=== PATIENT | male | born 1935 | race Caucasian/White ===

== ENCOUNTER 2022-04-01 10:40 | Outpatient (CLI) | payer MEDICARE, BC, SELFPAY | END 2022-04-01 10:41 | disposition home or self-care (01) | LOC: LAB 10:42 | PROVIDERS: PCP Surgery; Visit Provider Orthopaedic Surgery | DX: Z01.818 Encounter for other preprocedural examination (principal) | CPT/HCPCS: 36415; 86850; 86900; 86901 ==

== ENCOUNTER 2022-04-02 07:22 | Day surgery (SDC) | payer MEDICARE, BC, SELFPAY ==
[2022-04-02] VITALS (35 sets, daily range): BP systolic 97–180; BP diastolic 47–91; PULSE 50–80; RESP 12–22; TEMP 35.6–36.9; O2SAT 94–100; BMI 24.5
[2022-04-02] MEDS: ACETAMINOPHEN 500 MG TABLET 1000 MG PO ×3 (08:00→23:30)
[2022-04-02] MEDS: LACTATED RINGERS 1000 ML 1,000 ML 100 ML IV ×2 (08:00→09:55)
[2022-04-02] MEDS: SODIUM CHLORIDE 0.9 % (FLUSH) 10 ML SYRINGE IVF (08:00)
[2022-04-02] MEDS: OXYCODONE (CR) 10 MG TAB.ER.12H PO (08:00)
[2022-04-02] MEDS: CELECOXIB 200 MG CAPSULE PO ×2 (08:00→20:36)
[2022-04-02] MEDS: MIDAZOLAM HCL 1 MG/ML inj IVP (08:20)
[2022-04-02] MEDS: fentaNYL 100 MCG/2 ML inj IVP (08:20)
--- NOTE | 2022-04-02 08:29 | W.PM.NB ---
Nerve Block Nerve Block Time Seen by Provider: 08:30 Date Seen: 04/02/22 Type of block requested by surgeon for post-operative analgesia: DIMAS/LFCN Side: right Time out performed: Yes Verification of patient name: Yes Verification of date of : Yes Site marking: site marked Name of person performing procedure: Johnson Continuous monitoring Was continuous monitoring of O2 sat, B/P, air sampling and monitoring, recorded every 15 minutes?: Yes Procedure Checklist: sterile prep, needles and gloves Ultrasound guided. Images saved: Yes Medications given in 5ml increments after negative aspiration: Ropivicaine %: 0.5 mL: 30 Needle gauge: 20 Decadron (mg): 10 Precedex (mcg): 25 Patient tolerated procedure well: Yes Additional comments: Needle noted below psoas tendon needle noted adjacent to LFCN Block Charges Block Charge (with Pro Fee): Other Periph Nerve Block Use of Ultrasound Machine for Block: Yes- US Guidance/pain block
--- NOTE | 2022-04-02 08:31 | SUR.PREOP ---
TIME?OUT:?0819 PT/RN/MDA?VERIFICATION?OF?SURGICAL?SITE,?PROCEDURE,?AND?CONSENT OBTAINED?PRIOR?TO?INVASIVE?PROCEDURE.
--- NOTE | 2022-04-02 08:48 | CRLHL7_ITS ---
For Patients: As a result of the Cures Act, medical imaging exams and procedure reports are released immediately into your electronic medical record. You may view this report before your referring provider. If you have questions, please contact your health care provider. Indication: Hip replacement surgery Technique: AP hip fluoroscopic images. Fluoroscopy time 50.4 second seconds. Findings/Impression: Hardware from a right total hip arthroplasty is in satisfactory position. Dictated by Allen Aguilar MD @ 04/02/2022 11:04:15 AM (Electronically Signed)
[2022-04-02] MEDS: CEFAZOLIN 2 GM INJ IVP (09:30)
[2022-04-02] MEDS: TRANEXAMIC ACID 100 MG/ML INJ 1000 MG IV (09:30)
--- NOTE | 2022-04-02 10:53 | CRLHL7_ITS ---
For Patients: As a result of the Cures Act, medical imaging exams and procedure reports are released immediately into your electronic medical record. You may view this report before your referring provider. If you have questions, please contact your health care provider. Indication: POST-OP RIGHT HÉCTOR Technique: AP hip centered pelvis and lateral view right hip Findings/Impression: Hardware from a right total hip arthroplasty is in satisfactory position. Bone alignment is normal. No sign of acute fracture. Postop changes are within normal limits. Dictated by Allen Aguilar MD @ 04/02/2022 12:11:57 PM (Electronically Signed)
--- NOTE | 2022-04-02 10:54 | PM.ORPRC ---
Procedure Note Date of procedure: 04/02/22 Procedure: SURGEON: Diogo Cummings MD CEO ZIFF DAVIS: Rosemarie Cisneros PA-C, LJ Boyle PREOPERATIVE DIAGNOSIS: Right hip osteoarthritis POSTOPERATIVE DIAGNOSIS: Right hip osteoarthritis NAME OF OPERATION: Right total hip arthroplasty IMPLANTS: 1. [employer] [place] # 58 sector ingrowth cup 2. 36 x 58 +4 neutral polyethylene 3. Actis # 9 standard collared ingrowth stem 4. 36 + 1.5 cobalt chrome femoral head ANESTHESIA: General ESTIMATED BLOOD LOSS: 100 cc COMPLICATIONS: None SPECIMENS: None DRAINS: None PREOPERATIVE ANTIBIOTICS: Ancef 2 grams INDICATIONS: The patient is a 86-year-old with a longstanding history of severe, unrelenting right hip pain secondary to end-stage right hip osteoarthritis. Despite appropriate nonoperative management, including activity modification, use of an assist device, anti-inflammatories, [id number] pain medication, physical therapy and injections, they continue to have pain and disability. Operative intervention was offered. The risks, benefits and expected outcomes were discussed in detail. These included but were not limited to: Infection, bleeding, injury to blood vessel or nerve, venous thromboembolism. All questions were answered to their satisfaction. Use of an assistant terminal manager was necessary throughout the case for patient positioning and safety, soft tissue retraction and closure. PROCEDURE: The patient was placed supine on the [place] table. General anesthesia was administered. The assistant terminal manager made sure the patient was properly positioned. The right hip was prepped and draped in the usual sterile fashion. The image intensifier was brought in for a perfect AP pelvis and a perfect double tear drop AP view of each hip which were used for intraoperative templating with our fluoroscopic guide. An oblique incision was made 3 cm distal and 3 cm lateral to the anterior superior iliac spine. The assistant terminal manager retracted the soft tissues to protect them. Subcutaneous dissection was taken with electrocautery to the superficial fascia. The fascia was divided in line with the incision. Blunt dissection was carried medially to the tensor fascia mary lou and sartorius interval. Deep dissection was carried with electrocautery. The circumflex vessels were cauterized and divided. The capsule was exposed and then divided in a T-fashion, tagged with #1 Ethibond sutures. Retractors were placed in the joint, held by the assistant terminal manager. The corkscrew was placed in the femoral head. The neck cut was made in the subcapital region. We made a second neck cut more distal. The napkin ring of bone was removed. The femoral head was removed intact. Acetabular retractors were placed, held by the assistant terminal manager. The labrum was sharply debrided. The capsule was released. The 43 mm reamer was used to the true medial wall. We then enlarged in 2 mm increments using the image intensifier for our reamer placement. We impacted the cup which had excellent purchase. We placed the hole eliminator and the polyethylene. Attention was then turned to the proximal femur. The limb was placed in 140 degrees of external rotation, maximum extension and adduction. A significant amount of time was spent releasing the capsule to allow us to deliver the femur into the wound and complete the femoral side safely. Retractors were held by the assistant terminal manager throughout the femoral preparation. The jukebox routeman and canal finder were used. Broaches were used to a stable size. The calcar reamer was used. Trial components were placed. The hip was reduced and was found to be stable with appropriate soft tissue tension. Length and offset had been nicely restored using the image intensifier and our fluoroscopic guide. Trial components were removed. The stem was impacted. We placed the femoral head. Again, the hip was reduced and was found to be stable with appropriate soft tissue tension. Length and offset had been nicely restored. The assistant terminal manager did a three minute dilute Betadine solution soak. The assistant terminal manager irrigated the wound with 3 liters of normal saline via pulse lavage. The assistant terminal manager repaired the anterior capsule with a #1 Vicryl and our previously placed Ethibond sutures. The assistant terminal manager closed the fascia over the tensor fascia mary lou with a #1 PDO Stratafix, subcutaneous tissues with 2-0 Vicryl, skin with a running 3-0 Stratafix and glue. A dry dressing was applied by the assistant terminal manager. Sponge and needle counts were correct x 2. The patient tolerated the procedure well; there were no apparent complications. They were awakened and extubated in the operating room, sent to the Post-Anesthesia Care Unit in satisfactory condition. PLAN: 1. The patient will be mobilized with physical therapy, weight-bearing as tolerates 2. Xarelto x 5 days then aspirin x 30 days will be used for DVT prophylaxis 3. The patient will be discharged once medically appropriate
[2022-04-02] MEDS: fentaNYL 100 MCG/2 ML inj 50 MCG IVP ×3 (11:41→12:20)
--- NOTE | 2022-04-02 11:42 | W.ANESCHARGE ---
Anesthesia Charges Start Date/Time Anesthesia Start Date: 04/02/22 Anesthesia Start Time: 09:06 Stop Date/Time Anesthesia Stop Date: 04/02/22 Anesthesia Stop Time: 11:42 Summary Emergency: No Extremes of Age: Over 70-CPT 57686
--- NOTE | 2022-04-02 11:51 | W.ANESCHARGE ---
Anesthesia Charges Start Date/Time Anesthesia Start Date: 04/02/22 Anesthesia Start Time: 09:06 Stop Date/Time Anesthesia Stop Date: 04/02/22 Anesthesia Stop Time: 11:42 Summary Emergency: No Extremes of Age: Over 72-CPT 35858
[2022-04-02] MEDS: HYDROmorphone 0.5 mg/0.5 ml inj IVP ×3 (11:52→13:14)
--- NOTE | 2022-04-02 14:58 | PM.IMCN1 ---
Date of Consult Patient: Gary Patient Consult date: 04/02/22 Requesting Physician: Orthopedics Primary Care Provider: Kody Mann MD Consult Narrative Reason for consult: Medical management of comorbidities Narrative: Michael Santo is a 86 year old male who presented to the hospital today for an elective right HÉCTOR. There were no operative or anesthetic complications. Patient's preoperative H&P reviewed, PCP is Dr. Ondina maradiaga. Michael has a history of hypertension and chronic kidney disease. Previous surgeries include prostate biopsy and hernia repair. No history of blood clots. Nonsmoker, smoked a pipe for a short time remotely, drinks wine most nights of the week. No history of alcohol withdrawal. He lives with his in [place]. and daughter will be home with him postoperatively to assist with ADLs. Patient has no concerns for the hospitalist team. Review of Systems Status of ROS: Reports: 10 or more systems reviewed and unremarkable except as noted in History and below [facility] Medical History (Updated 04/02/22 @ 15:13 by Florence Chamberlain MD) Acquired renal artery stenosis Arthritis of right hip CA of prostate Chronic kidney disease Hypertension Lyme disease NSVT (nonsustained ventricular tachycardia) Surgical History (Updated 04/02/22 @ 15:06 by Florence Chamberlain MD) History of hernia repair History of prostate biopsy History of total hip arthroplasty Social History Highest level of school completed/degree received: Professional degree (MD, EMELY, DVM, DDS) Smoking Status: Never smoker Do you use any of these nicotine containing products: None How often do you have a drink containing alcohol: 4 or more times a week Alcohol type: wine How many standard drinks containing alcohol do you have on a typical day: 1 or 2 How often do you have six or more drinks on one occasion: Never AUDIT-C Alcohol total score: 4 Non-prescribed substance use: denies use Caffeine: Yes (C0ffee 2 cups/day) service: No Meds Home Medications and Allergies Home Medications Medication Instructions Recorded Confirmed Type amlodipine 5 mg tablet 5 mg PO DAILY 04/01/22 04/02/22 History calcium carbonate 500 mg-vitamin 1 tab PO DAILY 04/01/22 04/02/22 History D3 10 mcg (400 unit) tablet (Calcium 500 With D) losartan 50 mg tablet 50 mg PO DAILY 04/01/22 04/02/22 History Allergies Allergy/AdvReac Type Severity Reaction Status Date / Time penicillin V Allergy Rash Verified 04/02/22 07:40 Exam Narrative: Exam Narrative: GEN: Alert and oriented, nontoxic in appearance HEENT: Normal external ears, EOMIs bilaterally, no scleral icterus CV: RRR, No concerning murmurs, rubs, or gallops R: LCTA bilaterally without concerning wheezing, rales, or rhonchi Ext: wwp, no concerning edema Skin: No concerning skin lesions or rashes on exposed skin Neuro: Nonfocal Psych: Appropriate Const: Vital Signs, click to edit/add: Vital Signs - 24 hr 04/02/22 07:51 04/02/22 08:21 04/02/22 08:40 Temperature 97.4 F L Pulse Rate 66 62 50 L Pulse Rate [Left P ulse Oximeter] Respiratory Rate 16 16 16 Blood Pressure 164/74 H 169/80 H 100/66 Blood Pressure [Ri ght Arm] Pulse Oximetry 99 100 100 Oxygen Delivery Me thod Room Air Nasal Cannula Nasal Cannula Oxygen Flow Rate 2 2 04/02/22 08:25 04/02/22 08:30 04/02/22 08:50 Temperature Pulse Rate 58 L 53 L 50 L Pulse Rate [Left P ulse Oximeter] Respiratory Rate 16 16 16 Blood Pressure 180/79 H 136/67 98/56 L Blood Pressure [Ri ght Arm] Pulse Oximetry 100 99 100 Oxygen Delivery Me thod Nasal Cannula Nasal Cannula Nasal Cannula Oxygen Flow Rate 2 2 2 04/02/22 09:04 04/02/22 11:38 04/02/22 11:45 Temperature 97.3 F L Pulse Rate 52 L 64 67 Pulse Rate [Left P ulse Oximeter] Respiratory Rate 16 22 18 Blood Pressure 97/59 L 167/91 H 167/88 H Blood Pressure [Ri ght Arm] Pulse Oximetry 99 99 97 Oxygen Delivery Me thod Nasal Cannula Room Air Room Air Oxygen Flow Rate 2 04/02/22 11:50 04/02/22 11:55 04/02/22 12:00 Temperature 97.4 F L Pulse Rate 61 57 L 62 Pulse Rate [Left P ulse Oximeter] Respiratory Rate 16 14 14 Blood Pressure 161/80 H 141/71 H 148/76 H Blood Pressure [Ri ght Arm] Pulse Oximetry 100 100 100 Oxygen Delivery Me thod OxyMask OxyMask OxyMask Oxygen Flow Rate 10 10 6 04/02/22 12:05 04/02/22 12:25 04/02/22 12:35 Temperature 97.6 F Pulse Rate 56 L 53 L 55 L Pulse Rate [Left P ulse Oximeter] Respiratory Rate 12 12 12 Blood Pressure 151/78 H 142/64 H 136/60 Blood Pressure [Ri ght Arm] Pulse Oximetry 100 95 95 Oxygen Delivery Me thod OxyMask Room Air Room Air Oxygen Flow Rate 6 04/02/22 12:10 04/02/22 12:15 04/02/22 12:20 Temperature 97.6 F Pulse Rate 56 L 59 L 58 L Pulse Rate [Left P ulse Oximeter] Respiratory Rate 16 12 12 Blood Pressure 159/76 H 151/75 H 152/71 H Blood Pressure [Ri ght Arm] Pulse Oximetry 100 97 96 Oxygen Delivery Me thod Blow By Room Air Room Air Oxygen Flow Rate 6 04/02/22 12:30 04/02/22 12:45 04/02/22 11:45 Temperature 96.1 F L 96.1 F L Pulse Rate 56 L 60 Pulse Rate [Left P ulse Oximeter] 60 Respiratory Rate 16 18 18 Blood Pressure 147/65 H Blood Pressure [Ri ght Arm] 147/76 H 147/76 H Pulse Oximetry 96 99 Oxygen Delivery Me thod Room Air Room Air Room Air Oxygen Flow Rate 04/02/22 11:45 04/02/22 13:00 04/02/22 13:15 Temperature 96.1 F L 96.6 F L 96.1 F L Pulse Rate Pulse Rate [Left P ulse Oximeter] 60 58 L 59 L Respiratory Rate 18 18 18 Blood Pressure Blood Pressure [Ri ght Arm] 147/76 H 133/59 L 126/77 Pulse Oximetry 99 100 100 Oxygen Delivery Me thod Room Air Room Air Room Air Oxygen Flow Rate Assessment and Plan Assessment and plan (1) History of total hip arthroplasty: Status: Acute Assessment and Plan: - pain control and prophylaxis per Orthopedic Surgery team - continue home medications for comorbidities as noted above - routine f/u with Ortho, PT/OT, and PCP (2) Hypertension: Status: Acute (3) Chronic kidney disease: Status: Acute Plan - per above
[2022-04-02] MEDS: CEFAZOLIN 1 GM in 0.9 % SODIUM CHLORIDE Mini-bag 100 ML IVPB ×2 (16:02→23:30)
[2022-04-02] MEDS: OXYCODONE 5 MG TABLET PO (18:29)
[2022-04-02] MEDS: LACTATED RINGERS 1000 ML 1,000 ML 75 ML IV (18:32)
--- NOTE | 2022-04-02 19:18 | PC.NURSE ---
shift note: pt to rm @ 1245 via bed. pt rating rt thigh pain 3/10. pt pain increased to 5/10 so pt medicated x1 with 0.5mg dilaudid IV. pt has dizziness upon sitting up on edge of bed. Attempted sitting pt up x2. vss stable. pt afeb. LS clr. IS to 1999. drsg to rt thigh c/d/i. active ice to rt thigh. cms and PP intact bilat l/e. IV patent.
[2022-04-02] MEDS: SENNOSIDES 1 TAB TABLET 2 TAB PO (20:37)
[2022-04-03 03:28] VITALS: RESP 16
[2022-04-03 04:15] VITALS: BP 149/66; PULSE 75; RESP 20; TEMP 36.8; O2SAT 98
[2022-04-03] MEDS: ACETAMINOPHEN 500 MG TABLET 1000 MG PO (05:31)
--- NOTE | 2022-04-03 05:42 | PC.NURSE ---
Shift Note -: Pt pleasant and cooperative, VSS, afebrile, LS clear, BS active, PIV patent and asymptomatic occasional c/o hiccups, belching and nausea. Pt declined Maalox stating that GI symptoms were tolerable. Up with A1, walker and gait belt. X1 episode of BP 84/46 and symptomatic after first attempt to walk to BR @ 2100, subsequent walks uneventful and Pt expressed decreased stiffness in R hip with motion. Pt attempted to urinate unsuccessfully x3, declined straight catheterization until 2300. Bladder scan @ 2300 showed 597mL in the bladder, straight cath for 600 mL output. Pt up to bedside to urinate successfully @ 0530. Pt hesitant to take oxycodone, Pt ed provided on benefits of taking appropriate pain medication to stay ahead of the pain. Pt up in recliner at this time. See eMAR for medication administration.
[2022-04-03] MEDS: OXYCODONE 5 MG TABLET PO (06:56)
[2022-04-03] MEDS: CEFAZOLIN 1 GM in 0.9 % SODIUM CHLORIDE Mini-bag 100 ML IVPB (06:59)
[2022-04-03 07:00] VITALS: BP 132/56; PULSE 69; RESP 20; TEMP 36.9; O2SAT 98
[2022-04-03 07:19] LABS: Sodium* 129 mmol/L (135-149)
[2022-04-03 07:22] LABS: Blood Urea Nitrogen* 23 mg/dL (7-30); Creatinine* 1.7 mg/dL (0.5-1.5); Est. Creatinine Clearance* 31.29; Estimated Glomerular Filt Rate 39 ml/min
[2022-04-03 07:29] LABS: Basophils Percent Auto 0.1 % (0.0-3.0); Hematocrit 27.9 % (37.0-53.0); Hemoglobin* 9.6 gm/dL (13.5-17.5); Immature Granulocytes Abs Auto 0.22 K/uL (0.00-0.30); Lymphocytes Percent Auto 6.1 % (20-44); Mean Corpuscular HGB Conc 34 gm/dL (32-36); Mean Corpuscular Hemoglobin 30 pg (26-34); Mean Corpuscular Volume 87 fL (80-100); Monocytes Percent Auto 10.4 % (0.0-11.0); Neutrophils Percent Auto 81.6 % (42.0-72.0); Platelet Count* 235 K/uL (140-440); RDW Coefficient of Variation % 13.3 % (11.5-15.5); Red Blood Count 3.22 m/uL (4.30-5.90); White Blood Count* 12.55 K/uL (4.50-11.00)
[2022-04-03 07:32] LABS: Slide Review Reflex No
--- NOTE | 2022-04-03 07:55 | PM.ORPN ---
Subjective Subjective Time Seen by Provider: 07:20 Date Seen: 04/03/22 Principal diagnosis: Status post right hip replacement Interval history: Michael is comfortable this morning as far as his right hip, however he is suffering with pickups in urinary retention. In the past he has had the hiccups after a cortisone injection. He had hiccups at that time for about 8 hours and he took baclofen which improved his symptoms within 15 minutes he states. Ortho Exam Narrative Exam Narrative: Alert and oriented x3. Patient is in no acute distress. Converses without labored breathing. Hearing is grossly intact. Examination the right hip shows very minimal soft tissue edema about the hip. Nontender to palpation about the thigh. CMS is intact right lower extremity. He is able to straight leg raise. Bilateral calves are soft and nontender. Dressing is intact. No ecchymosis. No erythema. Const Vital Signs, click to edit/add: Vital Signs - 24 hr 04/02/22 08:21 04/02/22 08:40 04/02/22 08:25 Temperature Pulse Rate 62 50 L 58 L Pulse Rate [Left Pulse Oximeter] Respiratory Rate 16 16 16 Blood Pressure 169/80 H 100/66 180/79 H Blood Pressure [Right Arm] Pulse Oximetry 100 100 100 Oxygen Delivery Method Nasal Cannula Nasal Cannula Nasal Cannula Oxygen Flow Rate 2 2 2 04/02/22 08:30 04/02/22 08:50 04/02/22 09:04 Temperature Pulse Rate 53 L 50 L 52 L Pulse Rate [Left Pulse Oximeter] Respiratory Rate 16 16 16 Blood Pressure 136/67 98/56 L 97/59 L Blood Pressure [Right Arm] Pulse Oximetry 99 100 99 Oxygen Delivery Method Nasal Cannula Nasal Cannula Nasal Cannula Oxygen Flow Rate 2 2 2 04/02/22 11:38 04/02/22 11:45 04/02/22 11:50 Temperature 97.3 F L Pulse Rate 64 67 61 Pulse Rate [Left Pulse Oximeter] Respiratory Rate 22 18 16 Blood Pressure 167/91 H 167/88 H 161/80 H Blood Pressure [Right Arm] Pulse Oximetry 99 97 100 Oxygen Delivery Method Room Air Room Air OxyMask Oxygen Flow Rate 10 04/02/22 11:55 04/02/22 12:00 04/02/22 12:05 Temperature 97.4 F L Pulse Rate 57 L 62 56 L Pulse Rate [Left Pulse Oximeter] Respiratory Rate 14 14 12 Blood Pressure 141/71 H 148/76 H 151/78 H Blood Pressure [Right Arm] Pulse Oximetry 100 100 100 Oxygen Delivery Method OxyMask OxyMask OxyMask Oxygen Flow Rate 10 6 6 04/02/22 12:25 04/02/22 12:35 04/02/22 12:10 Temperature 97.6 F Pulse Rate 53 L 55 L 56 L Pulse Rate [Left Pulse Oximeter] Respiratory Rate 12 12 16 Blood Pressure 142/64 H 136/60 159/76 H Blood Pressure [Right Arm] Pulse Oximetry 95 95 100 Oxygen Delivery Method Room Air Room Air Blow By Oxygen Flow Rate 6 04/02/22 12:15 04/02/22 12:20 04/02/22 12:30 Temperature 97.6 F Pulse Rate 59 L 58 L 56 L Pulse Rate [Left Pulse Oximeter] Respiratory Rate 12 12 16 Blood Pressure 151/75 H 152/71 H 147/65 H Blood Pressure [Right Arm] Pulse Oximetry 97 96 96 Oxygen Delivery Method Room Air Room Air Room Air Oxygen Flow Rate 04/02/22 12:45 04/02/22 11:45 04/02/22 11:45 Temperature 96.1 F L 96.1 F L 96.1 F L Pulse Rate 60 Pulse Rate [Left Pulse Oximeter] 60 60 Respiratory Rate 18 18 18 Blood Pressure Blood Pressure [Right Arm] 147/76 H 147/76 H 147/76 H Pulse Oximetry 99 99 Oxygen Delivery Method Room Air Room Air Room Air Oxygen Flow Rate 04/02/22 13:00 04/02/22 13:15 04/02/22 15:00 Temperature 96.6 F L 96.1 F L Pulse Rate Pulse Rate [Left Pulse Oximeter] 58 L 59 L 78 Respiratory Rate 18 18 16 Blood Pressure Blood Pressure [Right Arm] 133/59 L 126/77 Pulse Oximetry 100 100 Oxygen Delivery Method Room Air Room Air Oxygen Flow Rate 04/02/22 16:43 04/02/22 13:30 04/02/22 15:30 Temperature 97.5 F L 96.9 F L 97.5 F L Pulse Rate Pulse Rate [Left Pulse Oximeter] 78 63 78 Respiratory Rate 16 16 16 Blood Pressure Blood Pressure [Right Arm] 152/82 H 120/58 L 152/82 H Pulse Oximetry 100 100 100 Oxygen Delivery Method Room Air Room Air Room Air Oxygen Flow Rate 10/18/22 13:45 04/02/22 14:00 04/02/22 14:30 Temperature 96.9 F L 97.1 F L 97.1 F L Pulse Rate Pulse Rate [Left Pulse Oximeter] 51 L 55 L 80 Respiratory Rate 16 16 18 Blood Pressure Blood Pressure [Right Arm] 118/54 L 120/47 L 160/81 H Pulse Oximetry 94 99 100 Oxygen Delivery Method Room Air Room Air Room Air Oxygen Flow Rate 04/02/22 16:30 04/02/22 17:30 04/02/22 18:30 Temperature 97.5 F L 97.6 F 97.6 F Pulse Rate Pulse Rate [Left Pulse Oximeter] 80 78 80 Respiratory Rate 16 16 16 Blood Pressure Blood Pressure [Right Arm] 157/68 H 148/82 H 138/80 Pulse Oximetry 100 100 98 Oxygen Delivery Method Room Air Room Air Room Air Oxygen Flow Rate 04/02/22 19:34 04/02/22 20:22 04/02/22 23:29 Temperature 98.4 F 97.9 F Pulse Rate Pulse Rate [Left Pulse Oximeter] 77 77 75 Respiratory Rate 20 20 20 Blood Pressure Blood Pressure [Right Arm] 139/80 136/72 Pulse Oximetry 99 99 Oxygen Delivery Method Room Air Room Air Oxygen Flow Rate 04/03/22 03:28 04/03/22 04:15 Temperature 98.3 F Pulse Rate Pulse Rate [Left Pulse Oximeter] 75 Respiratory Rate 16 20 Blood Pressure Blood Pressure [Right Arm] 149/66 H Pulse Oximetry 98 Oxygen Delivery Method Room Air Oxygen Flow Rate Assessment and Plan Assessment and plan (1) History of total hip arthroplasty: Problem details: Date of surgery 04/02/2022 Status: Acute Assessment and Plan: Plan for discharge is today to home if they meet discharge criteria. DVT prophylaxis includes Xarelto 10 mg daily for total of 5 days, then aspirin 81 mg twice daily for 30 days, Nando stockings x1 month may remove for 1 hr per day, frequent ambulation Remove dressing 1 week. Observe wound and phone Orthopedics with any questions or concerns Use Ice on operative hip unrestricted. Return to clinic in 1 week with PA for a wound check Return to clinic in [address] Cummings Minimize narcotic use. Wean off and discontinue soon as possible. Activities as tolerated. No strenuous activity. Attend outpt PT His and daughter will be assisting him at home. (2) Hypertension: Status: Acute (3) Chronic kidney disease: Status: Acute
[2022-04-03] MEDS: BACLOFEN 10 MG TABLET 5 MG PO (08:13)
[2022-04-03] MEDS: CELECOXIB 200 MG CAPSULE PO (08:13)
[2022-04-03] MEDS: SENNOSIDES 1 TAB TABLET 2 TAB PO (08:14)
[2022-04-03] MEDS: RIVAROXABAN 10 MG TABLET PO (08:14)
[2022-04-03] MEDS: BACLOFEN 10 MG TABLET PO (09:31)
[2022-04-03 09:50] VITALS: TEMP 36.9
--- NOTE | 2022-04-03 10:48 | P.DS_ITS ---
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 Patient did well postoperatively and comorbidities remained stable. He did have fairly significant hiccups on postoperative day 1; notes that this has happened in the past (after cortisone injection with Dr. Travis of sports medicine) and responded well to baclofen. We trialed Baclofen with minimal success; patient does have more of this at home and will continue to use it p.r.n. for hiccup management after discharge. No other changes made to home medications. Patient discharging home with on postoperative day 1. Prophylaxis and pain management per Orthopedic surgery team. Patient will be discharged home with routine follow-up with therapies, orthopedic surgery, and PCP. Status at Discharge Overall status at discharge: patient is progressing back to baseline Time Spent with Patient Time attestation: Total time spent providing and/or coordinating discharge services: Time spent: Greater than 30 minutes Specific discharge activities: medication management, discharge planning Exam Narrative: Exam Narrative: GEN: Alert and oriented, speaking in full sentences, intermittent hiccups noted HEENT: Normal external ears, EOMIs bilaterally, no scleral icterus CV: RRR, No concerning murmurs, rubs, or gallops R: LCTA bilaterally without concerning wheezing, rales, or rhonchi Ext: wwp, no concerning edema Skin: No concerning skin lesions or rashes on exposed skin Neuro: No focal deficits Psych: Appropriate Const: Vital Signs, click to edit/add: Vital Signs - 24 hr 04/02/22 11:38 04/02/22 11:45 04/02/22 11:50 Temperature 97.3 F L Pulse Rate 64 67 61 Pulse Rate [Left P ulse Oximeter] Respiratory Rate 22 18 16 Blood Pressure 167/91 H 167/88 H 161/80 H Blood Pressure [Ri ght Arm] Pulse Oximetry 99 97 100 Oxygen Delivery Me thod Room Air Room Air OxyMask Oxygen Flow Rate 10 04/02/22 11:55 04/02/22 12:00 04/02/22 12:05 Temperature 97.4 F L Pulse Rate 57 L 62 56 L Pulse Rate [Left P ulse Oximeter] Respiratory Rate 14 14 12 Blood Pressure 141/71 H 148/76 H 151/78 H Blood Pressure [Ri ght Arm] Pulse Oximetry 100 100 100 Oxygen Delivery Me thod OxyMask OxyMask OxyMask Oxygen Flow Rate 10 6 6 04/02/22 12:25 04/02/22 12:35 04/02/22 12:10 Temperature 97.6 F Pulse Rate 53 L 55 L 56 L Pulse Rate [Left P ulse Oximeter] Respiratory Rate 12 12 16 Blood Pressure 142/64 H 136/60 159/76 H Blood Pressure [Ri ght Arm] Pulse Oximetry 95 95 100 Oxygen Delivery Me thod Room Air Room Air Blow By Oxygen Flow Rate 6 04/02/22 12:15 04/02/22 12:20 04/02/22 12:30 Temperature 97.6 F Pulse Rate 59 L 58 L 56 L Pulse Rate [Left P ulse Oximeter] Respiratory Rate 12 12 16 Blood Pressure 151/75 H 152/71 H 147/65 H Blood Pressure [Ri ght Arm] Pulse Oximetry 97 96 96 Oxygen Delivery Me thod Room Air Room Air Room Air Oxygen Flow Rate 04/02/22 12:45 04/02/22 11:45 04/02/22 11:45 Temperature 96.1 F L 96.1 F L 96.1 F L Pulse Rate 60 Pulse Rate [Left P ulse Oximeter] 60 60 Respiratory Rate 18 18 18 Blood Pressure Blood Pressure [Ri ght Arm] 147/76 H 147/76 H 147/76 H Pulse Oximetry 99 99 Oxygen Delivery Me thod Room Air Room Air Room Air Oxygen Flow Rate 04/02/22 13:00 04/02/22 13:15 04/02/22 15:00 Temperature 96.6 F L 96.1 F L Pulse Rate Pulse Rate [Left P ulse Oximeter] 58 L 59 L 78 Respiratory Rate 18 18 16 Blood Pressure Blood Pressure [Ri ght Arm] 133/59 L 126/77 Pulse Oximetry 100 100 Oxygen Delivery Me thod Room Air Room Air Oxygen Flow Rate 04/02/22 16:43 04/02/22 13:30 04/02/22 15:30 Temperature 97.5 F L 96.9 F L 97.5 F L Pulse Rate Pulse Rate [Left P ulse Oximeter] 78 63 78 Respiratory Rate 16 16 16 Blood Pressure Blood Pressure [Ri ght Arm] 152/82 H 120/58 L 152/82 H Pulse Oximetry 100 100 100 Oxygen Delivery Me thod Room Air Room Air Room Air Oxygen Flow Rate 04/02/22 13:45 04/02/22 14:00 04/02/22 14:30 Temperature 96.9 F L 97.1 F L 97.1 F L Pulse Rate Pulse Rate [Left P ulse Oximeter] 51 L 55 L 80 Respiratory Rate 16 16 18 Blood Pressure Blood Pressure [Ri ght Arm] 118/54 L 120/47 L 160/81 H Pulse Oximetry 94 99 100 Oxygen Delivery Me thod Room Air Room Air Room Air Oxygen Flow Rate 04/02/22 16:30 04/02/22 17:30 04/02/22 18:30 Temperature 97.5 F L 97.6 F 97.6 F Pulse Rate Pulse Rate [Left P ulse Oximeter] 80 78 80 Respiratory Rate 16 16 16 Blood Pressure Blood Pressure [Ri ght Arm] 157/68 H 148/82 H 138/80 Pulse Oximetry 100 100 98 Oxygen Delivery Me thod Room Air Room Air Room Air Oxygen Flow Rate 04/02/22 19:34 04/02/22 20:22 04/02/22 23:29 Temperature 98.4 F 97.9 F Pulse Rate Pulse Rate [Left P ulse Oximeter] 77 77 75 Respiratory Rate 20 20 20 Blood Pressure Blood Pressure [Ri ght Arm] 139/80 136/72 Pulse Oximetry 99 99 Oxygen Delivery Me thod Room Air Room Air Oxygen Flow Rate 04/03/22 03:28 04/03/22 04:15 04/03/22 07:00 Temperature 98.3 F 98.5 F Pulse Rate Pulse Rate [Left P ulse Oximeter] 75 69 Respiratory Rate 16 20 20 Blood Pressure Blood Pressure [Ri ght Arm] 149/66 H 132/56 L Pulse Oximetry 98 98 Oxygen Delivery Me thod Room Air Room Air Oxygen Flow Rate 0 04/03/22 07:00 04/03/22 09:50 Temperature 98.5 F Pulse Rate Pulse Rate [Left P ulse Oximeter] 69 Respiratory Rate 20 Blood Pressure Blood Pressure [Ri ght Arm] Pulse Oximetry Oxygen Delivery Me thod Oxygen Flow Rate DS: Data Data Completed and Pending Labs on day of discharge: Labs from last 24 hours 04/03/22 04/03/22 06:10 06:10 WBC 12.55 H RBC 3.22 L Hgb 9.6 L Hct 27.9 L MCV 87 MCH 30 MCHC 34 RDW Coeff of Kayli 13.3 Plt Count 235 Neut % (Auto) 81.6 H Lymph % (Auto) 6.1 L [place] % (Auto) 10.4 Eos % (Auto) 0.0 Baso % (Auto) 0.1 Neut # (Auto) 10.20 H Lymph # (Auto) 0.80 L [place] # (Auto) 1.30 H Eos # (Auto) 0.00 Baso # (Auto) 0.00 Abs Immat Gran (auto) 0.22 Sodium 129 L Potassium 5.0 BUN 23 Creatinine 1.7 H Estimated Creat Clear 31.29 Estimated GFR 39 Discharge Plan Discharge Disposition: Home, Self-Care Discharging Surgeon: Diogo Cummings Follow-Up Appointment: One week Prescriptions: New acetaminophen 500 mg Tablet 500 - 1,000 mg PO Q6H MDD 4000 mg per day PRNQty: 100 0RF oxycodone 5 mg Tablet 2.5 - 5 mg PO Q4-6H MDD 6 tabs per day PRN (Reason: Pain) Qty: 42 0RF sennosides [Senna Lax] 8.6 mg Tablet 2 tab PO BID PRNQty: 100 0RF Xarelto 10 mg Tablet 10 mg PO DAILY 4 Days Qty: 4 0RF Rx Instructions: For DVT prophylaxis. Take this medication daily for 4 days, then aspirin 81 mg twice daily for 30 days. aspirin 81 mg capsule 81 mg PO BID 30 Days Qty: 60 0RF Rx Instructions: For DVT prophylaxis No Action amlodipine 5 mg tablet 5 mg PO DAILY losartan 50 mg tablet 50 mg PO DAILY calcium carbonate-vitamin D3 [Calcium 500 With D] 500 mg-10 mcg (400 unit) tablet 1 tab PO DAILY Activity Level: Activity as Tolerated and No strenuous activity Activity Detail: Keep dressing on for 1 week. Dressing is waterproof. May shower. Surgical glue covers the wound. Attend outpatient physical therapy if scheduled. Ice and elevate operative extremity without restriction. Wear compression stockings for 1 month post surgery. May remove for 1 hour per day. Ambulate every hour throughout the day. If you drive, Do not drive while taking narcotic pain medication. Do not drink alcohol while taking narcotic pain medication. May drive when safe to do so and have full function of the extremities, this may take 6 weeks or more. Notify Orthopedics with any questions or concerns. ([phone]) Patient Instructions: Acetaminophen (By mouth), Aspirin (By mouth), Oxycodone, Rapid Release (By mouth), Rivaroxaban (By mouth) (Xarelto, Xarelto Starter Pack), Senna (By mouth) (Sen, Senna-lax), Total Hip Replacement (DC) Forms: Work/Release Restrictions Follow-up: Adriana Guthrie PA-C [Physician [employer]] - 04/10/22 11:00 am Kody Mann MD [Primary Care Provider] - Discharge Orders: Discharge Order (Routine); Ordered 04/03/22 Ordered By: Rosemarie Beck
--- NOTE | 2022-04-03 11:52 | PC.NURSE ---
Patient discharged at 1149 home with spouse and assist from dtr. Pt denied pain and d/c and Hiccups improved. pt and spouse denied further questions at d/c.
--- NOTE | 2022-04-03 16:47 | PC.NURSE ---
Michael called M/S with a concern that after urinating normally this afternoon, he noted approx 12 drops of blood from his penis. He dabbed this up with toilet paper and has not had any further bleeding at this time. Patient is on Xarelto. Spoke with Dr. Ryan (hospitalist) and he has instructed that patient go to ER for any further bleeding or blood in urine. Michael understands this and states he is having no bleeding at this time.
== END 2022-04-03 11:49 | disposition home or self-care (01) ==
LOC: OR 07:23 → MEDSURG 07:50
PROVIDERS: PCP Surgery; Visit Provider Orthopaedic Surgery
PROC: (CPT 27130; principal; 2022-04-02 09:15)
DX: M16.11 Unilateral primary osteoarthritis, right hip (principal); I12.9 Hypertensive chronic kidney disease with stage 1 through stage 4 chronic kidney disease, or unspecified chronic kidney disease; N18.9 Chronic kidney disease, unspecified
CPT/HCPCS: 27130; 01214; 36415; 51702; 51798; 64450; 73501; 76000; 76942; 82565; 84132; 84295; 84520; 85025; 97110; 97116; 97161; 97165; 97530; 97535; 99100; A9270; C1776; J0690; J1100; J1170; J2250; J2795; J3010; J7120

== ENCOUNTER 2022-04-06 13:00 | Emergency (ER) | payer MEDICARE, BC, SELFPAY ==
[2022-04-06 13:08] VITALS: BP 138/72; PULSE 68; RESP 18; TEMP 36.6; O2SAT 100; BMI 23.6
--- NOTE | 2022-04-06 13:27 | ED_ITS ---
HPI - General Adult General Chief complaint: Constipation Stated complaint: No bowel movement since friday Time Seen by Provider: 04/06/22 13:18 History of Present Illness HPI narrative: This 86-year-old male comes in reporting no bowel movement for the past 6 days. He had a hip replacement on the right side done recently. He had been taking some opiates but discontinued this now 3 days ago. He has some occasional abdominal discomfort. He is taking some [id number] oral medications including MiraLax but yet has not had any bowel movement for 6 days. Related Data Home Medications Medication Instructions Recorded Confirmed amlodipine 5 mg tablet 5 mg PO DAILY 04/01/22 04/02/22 calcium carbonate 500 mg-vitamin 1 tab PO DAILY 04/01/22 04/02/22 D3 10 mcg (400 unit) tablet (Calcium 500 With D) losartan 50 mg tablet 50 mg PO DAILY 04/01/22 04/02/22 Previous Rx's Medication Instructions Recorded acetaminophen 500 mg tablet 500 - 1,000 mg PO Q6H PRN #100 tabs 04/02/22 aspirin 81 mg capsule 81 mg PO BID 30 days #60 caps 04/02/22 oxycodone 5 mg tablet 2.5 - 5 mg PO Q4-6H PRN Pain #42 04/02/22 tabs rivaroxaban 10 mg tablet (Xarelto) 10 mg PO DAILY 4 days #4 tabs 04/02/22 sennosides 8.6 mg tablet (Senna 2 tab PO BID PRN #100 tabs 04/02/22 Lax) Allergies Allergy/AdvReac Type Severity Reaction Status Date / Time penicillin V Allergy Rash Verified 04/02/22 07:40 Review of Systems Status of ROS: Reports: 10 or more systems reviewed and unremarkable except as noted in History and below Narrative: Constitutional: No fevers, no weight gain or loss. Eyes: No discharge. No vision changes. HENT: No congestion, no sore throat, no ear pain. Cardiovascular: No chest pain, no palpitations. Respiratory: No shortness of breath, no wheezes, no cough. Gastrointestinal: Constipation as described above. Genitourinary: No dysuria, no hematuria. Musculoskeletal: Normal range of motion. Skin: No rashes, no pruritis. Neurological: No dizziness, weakness, sensory change, speech change. Endo/Heme/Allergies: No bruising or bleeding. No polydipsia. Pysch: no suicidality, no anxiety, no insomnia. All other systems reviewed and are negative. 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 CA of prostate Chronic kidney disease Hypertension Lyme disease NSVT (nonsustained ventricular tachycardia) Surgical History (Updated 04/03/22 @ 07:57 by Rosemarie Beck PA-C) History of hernia repair History of prostate biopsy History of total hip arthroplasty Social History Highest level of school completed/degree received: Professional degree (MD, EMELY, DVM, DDS) Smoking Status: Never smoker Do you use any of these nicotine containing products: None How often do you have a drink containing alcohol: 4 or more times a week Alcohol type: wine How many standard drinks containing alcohol do you have on a typical day: 1 or 2 How often do you have six or more drinks on one occasion: Never AUDIT-C Alcohol total score: 4 Non-prescribed substance use: denies use Caffeine: Yes (C0ffee 2 cups/day) service: No Exam Narrative: Exam Narrative: Constitutional: Well-developed, well-nourished, no acute distress. HEENT: Normocephalic, atraumatic. Neck: Normal range of motion. Nontender. Supple. Heart: Regular. No murmurs. Normal rate. Intact distal pulses. Lungs: Clear to auscultation. No chest discomfort. No wheezes, rhonchi, or rales. Abdomen: Normal bowel sounds. Nontender. No rebound tenderness. Genitalia: Deferred. Back: No midline tenderness. Normal range of motion. Extremities: Normal range of motion. Recent right hip replacement surgery. Skin: Intact. No rash. Warm. No erythema or pallor. Neurologic: No altered sensation. No weakness. Alert and oriented. Psychiatric: No suicidality. No anxiety or depression. No insomnia. Nursing notes and vitals signs are reviewed. Const: Vital Signs, click to edit/add: Vital Signs - 24 hr 04/06/22 13:08 Temperature 98 F Pulse Rate [Pulse Oximeter] 68 Respiratory Rate 18 Blood Pressure [Ri ght Upper Arm] 138/72 Pulse Oximetry 100 Oxygen Delivery Me thod Room Air Course Vital Signs Vital signs: Initial Vital Signs Temperature 98 F 04/06/22 13:08 Temperature Source Temporal Artery Scan 04/06/22 13:08 Pulse Rate 68 04/06/22 13:08 Respiratory Rate 18 04/06/22 13:08 Blood Pressure 138/72 04/06/22 13:08 Blood Pressure Mean 94 04/06/22 13:08 Blood Pressure Position Supine 04/06/22 13:08 Pulse Oximetry 100 04/06/22 13:08 Oxygen Delivery Method 04/06/22 13:08 Vital Signs Temperature 98 F 04/06/22 13:08 Pulse Rate 68 04/06/22 13:08 Respiratory Rate 18 04/06/22 13:08 Blood Pressure 138/72 04/06/22 13:08 Pulse Oximetry 100 04/06/22 13:08 Oxygen Delivery Method 04/06/22 13:08 Temperature 98 F 04/06/22 13:08 Pulse Rate 68 04/06/22 13:08 Respiratory Rate 18 04/06/22 13:08 Blood Pressure 138/72 04/06/22 13:08 Pulse Oximetry 100 04/06/22 13:08 Oxygen Delivery Method 04/06/22 13:08 Medical Decision Making MDM Narrative Medical decision making narrative: This patient comes in seeking attention for no bowel movement for the past 6 days. He has discontinued use of opiates now for 3 days yet this is likely the underlying cause of his constipation. A Fleet's enema was administered. After more than half an hour he still did not have an urge despite administering the enema. He did then attempt to pass tool but just had a small amount of liquid that he passed. He is not in any particular discomfort and is not showing any sign of complications such as bowel obstruction or other serious intra-abdominal process. I do hear bowel sounds. The patient did receive a a subcuticular injection of Relistor and a dose of milk of magnesia. I advised him to use [id number] medicines more liberally to get the desired benefit. Discharge Plan Discharge Clinical Impression: Constipation due to pain medication Patient Disposition: Home, Self-Care Condition: Stable Additional Instructions: Use [id number] medicines as needed and directed for constipation. Follow up with MD or return if worsening symptoms happen. Prescriptions: No Action amlodipine 5 mg tablet 5 mg PO DAILY losartan 50 mg tablet 50 mg PO DAILY calcium carbonate-vitamin D3 [Calcium 500 With D] 500 mg-10 mcg (400 unit) tablet 1 tab PO DAILY acetaminophen 500 mg Tablet 500 - 1,000 mg PO Q6H MDD 4000 mg per day PRNQty: 100 0RF oxycodone 5 mg Tablet 2.5 - 5 mg PO Q4-6H MDD 6 tabs per day PRN (Reason: Pain) Qty: 42 0RF sennosides [Senna Lax] 8.6 mg Tablet 2 tab PO BID PRNQty: 100 0RF Xarelto 10 mg Tablet 10 mg PO DAILY 4 Days Qty: 4 0RF Rx Instructions: For DVT prophylaxis. Take this medication daily for 4 days, then aspirin 81 mg twice daily for 30 days. aspirin 81 mg capsule 81 mg PO BID 30 Days Qty: 60 0RF Rx Instructions: For DVT prophylaxis Follow Up/Referrals: Kody Mann MD [Primary Care Provider] - Stand Alone Forms: [facility] Info Instructions
[2022-04-06] MEDS: MAGNESIUM HYDROXIDE 30 ML ORAL.SUSP PO (15:15)
== END 2022-04-06 15:21 | disposition home or self-care (01) ==
PROVIDERS: Emergency Provider Emergency Medicine Emergency Medical Services; PCP Surgery
DX: K59.03 Drug induced constipation (principal); T40.2X5A Adverse effect of other opioids, initial encounter
CPT/HCPCS: 99282; 99283; 99284; A9270

== ENCOUNTER 2022-04-24 10:15 | Outpatient (RCR) | payer MEDICARE, BC, SELFPAY | END 2022-06-14 14:13 | disposition home or self-care (01) | PROVIDERS: PCP Surgery; Visit Provider Orthopaedic Surgery | DX: Z98.890 Other specified postprocedural states (principal); Z51.89 Encounter for other specified aftercare | CPT/HCPCS: 97110; 97116; 97140; 97161; 97164; 97535 ==

== ENCOUNTER 2024-09-11 16:31 | Emergency (ER) | payer MEDICARE, BC, SELFPAY ==
--- OUTSIDE RECORDS SUMMARY | 2024-09-11 16:33 | XMS_ITS | Clinical Summary ---
Author Organization [facility] [employer] [facility] Address [address] [place] [address] Care Team Providers Care Quality Engineer Name Role Phone Kushal Mann MD Primary Care Provider [phone] Allergies Active Allergy Reactions Criticality Noted Date Comments Penicillins Rash 01/18/2019 Medications calcium carbonate-vitami n D3, 500 mg-400 units, (OSCAL 500 + D) tablet Take 1 tablet by mouth once daily. 0 02/26/2018 Active losartan (COZAAR) 50 mg tabletIndication s:HTN (hypertension) Take 1 Tablet (50 mg) by mouth once daily. 90 Tablet 3 07/08/2024 Active amLODIPine (NORVASC) 2.5 mg tabletIndication s:HTN (hypertension) Take 1 Tablet (2.5 mg) by mouth once daily. 90 Tablet 3 07/08/2024 Active Active Problems Problem Noted Date Diagnosed Date History of total hip arthroplasty 06/30/2023 Stage 3b chronic kidney disease 03/08/2022 Acquired renal artery stenosis 11/16/2021 Arthritis of right hip 02/14/2021 Overview (04/18/2021): Feb 14, 2021: Ultrasound guided hip joint injection by Dr. Falcon. Still 80% benefit after 2 months. NSVT (nonsustained ventricular tachycardia) 06/2020 Overview (11/14/2020): 2 episodes of NSVT on Zio patch 05/2020 - he did see Cardiology afterwards HTN (hypertension) 08/14/2019 Lyme disease 01/23/2018 Prostate cancer 04/05/2009 Resolved Problems Problem Noted Date Diagnosed Date Resolved Date CKD (chronic kidney disease) stage 4, GFR 15-29 ml/min 04/08/2022 06/30/2023 Encounters Date Type Department Care Team Description 07/14/2024 9:00 AM METAL PAINTER Ancillary Procedure [facility] [address] [place] [address] 07/14/2024 Travel 07/08/2024 9:50 AM METAL PAINTER Office Visit [facility] [address] [place] [address] Kushal Mann MD Medicare ANNUAL (subsequent) Visit (88 yr old male) 07/07/2024 Travel from Last 3 Months Immunizations Immunization Administration Dates Next Due AMB INFLUENZA IIV3 (AGE 65+ YRS) PF (Flu Clinic Only) 04/08/2019,04/17/2017 AMB Influenza, IIV3 (Age >=3 years)(Flu Clinic Only) 03/31/2013,03/23/2012,03/25/2011,2007 Amb Influenza, Inact (High-d ose Quadrivalent) (Flu Clinic Only) 02/24/2014 Amb Influenza, Inact (High-d ose) (Flu Clinic Only) 03/26/2016,03/24/2015 COVID-19 vaccine (The Vetted Net NTOptaros 30mcg/0.3mL) ANGELA ANDRADE 08/19/2020,07/29/2020 Influenza A (H1N1), Inactivated 06/06/2009 Influenza A (H1N1), Inactiva marcello (Age >=3 Years) 06/06/2009 Influenza Virus, Unspecified 02/26/2018, 04/17/2017,03/25/2011,2010,04/02/2010,05/25/2009,05/25/2009,1 06/23/2004,03/29/2004 Influenza, High-dose Inactivated 03/26/2016,1002/2015,02/24/2014 Influenza, High-dose Quadriv alent Inactivated 04/17/2023,02/07/2021,03/10/2020 Influenza, IIV3 (Age 6-35 mos) 03/25/2011,2008 Influenza, IIV3 (Age >=3 years) 03/31/20 13,03/23/2012,04/02/2010,2008,04/19/2008,04/23/2005,03/29/2004 Influenza, Inactivated AIIV4 (Age 65+ Years) Preserv Free 03/08/2022,02/07/2021 Influenza, Inactivated IIV3 (Age 65+ Years) Preserv Free 03/09/2024,03/10/2020,02/26/2018 Pneumococcal Poly,23-Valent (Pneumovax) 05/08/2010 Pneumococcal conj 13-Valent (Prevnar 13) 11/24/2017 Td, Preservative Free (age > = 7 Years) 12/25/2007 Tdap 11/30/2018 Family History Medical History Relation Name Comments Heart Disease Brother 1 Heart Disease Father Cancer-breast Mother Cancer-breast Sister 1 Relation Name Status Comments Brother 1 Brother 2 Alive Father Half-Brother Alive Mother Sister 1 Alive Sister 2 Alive Social History Tobacco Use Types Packs/Day Years Used Date Smoking Tobacco: Former Cigarettes 0.1 1 Pipe Smokeless Tobacco: Never Tobacco Cessation:Counseling Given: Yes Comments:minimal use - smoked a pipe for two years Alcohol Use Standard Drinks/Week Comments Yes 14 (1 standard drink = 0.6 oz pu re alcohol) PHQ-2 Answer Date Recorded PHQ-2 TOTAL SCORE 0 07/08/2024 Social Connections Answer Date Recorded Do you often feel lonely or isolated from those around you? 0 07/08/2024 Financial Resource Strain Answer Date R ecorded Difficulty of Paying Living Expenses 3 07/08/2024 Difficulty of Paying Living Expenses Not on file 07/08/2024 Food Insecurity Answer Date Recorded Do you worry your food will run out before you are able to buy more? 1 07/08/2024 Transportation Needs Answer Date Record ed Does lack of transportation keep you from medica l appointments? 1 07/08/2024 Does lack of transportation keep you from work, meetings or getting things that you need? 1 07/08/2024 Housing Stability Answer Date Recorded What is your housing situation today? 1 07/08/2024 Utilities Answer Date Recorded Do you have trouble paying f or utilities (for example, heat, electricity, water, phone)? 1 07/08/2024 Sex and Gender Information Value Date Recorded Sex Assigned at Not on file Legal Sex Male 6:27 AM METAL PAINTER Gender Identity Not on file Sexual Orientation Not on file Obstetrics History Last Filed Vital Signs Vital Sign Reading Time Taken Comments Blood Pressure 121/81 07/08/2024 9:57 AM METAL PAINTER Pulse 82 07/08/2024 9:57 AM METAL PAINTER Temperature 36.3 C (97.4 F) 08/03/2021 8:32 AM METAL PAINTER Respiratory Rate 16 05/30/2020 10:28 AM METAL PAINTER Oxygen Saturation 99% 07/08/2024 9:57 AM METAL PAINTER Inhaled Oxygen Concentration - - Weight 72.3 kg (159 lb 6.4 oz) 07/08/2024 9:57 A M METAL PAINTER Height 172 cm (5' 7.72) 07/08/2024 9:57 AM METAL PAINTER Body Mass Index 24.44 07/08/2024 9:57 AM METAL PAINTER Plan of Treatment Health Maintenance Due Date Last Done Comments Zoster (shingles) series for age 50+ (1 of 2) 1954 RSV vaccine for adults or (1 - 1-dose 75+ series) 2012 COVID-19 vaccine series (8 - Pfizer risk season) 2024 03/03/2024, 03/15/2023, 02/22/2022, Additional history exists BMI (ht and wt on same day) for age 18+ 07/08/2025 07/08/2024, 06/30/2023, 05/23/2022, Additional history exists Depression screening for age 12+ 07/08/2025 07/08/2024, 06/30/2023, 05/23/2022, Additional history exists Medicare Wellness for age 65+ 07/09/2025, 06/30/2023, 05/23/2022, Additional history exists Tetanus booster 11/30/2028 11/30/2018, 12/25/2007 Pneumococcal series for age 50+ Completed 8, 05/08/2010 Tdap Completed 11/30/2018 Influenza Vaccine Completed 03/09/2024, , 02/07/2021, Additional history exists Medical Devices Implanted Type Area Bridge Club Manager Device Identifier Shelf Expiration Date Model / Serial / Lot Implant On The Fly - [id number] Implanted:Qty: 76 on 09/17/2007 at [facility] [id number] / / [id number] Description:Prostated seeds: NASI Source Pd-103 1.550[facility] , [address] [place] [address], [address], Implant On The Fly - [id number] Implanted:Qty: 1 on 09/17/2007 at [facility] / / AUTOCLAVE 3/LOAD 3 Description:Gold prostate se ed used as marker. no charge item. Procedures Procedure Name Priority Date/Time Associated Diagnosis Comments ECHO TTE COMPLETE WO CONTRAST Routine 07/14/2024 9:22 AM METAL PAINTER Ascending aorta dilatation Mild mitral regurgitation VITAMIN D 25 (DEFICIENCY) Routine 07/08/2024 10:56 AM METAL PAINTER Vitamin D deficiency BASIC METABOLIC PANEL Routine 07/08/2024 10:56 AM METAL PAINTER HTN (hypertension) Stage 3b chronic kidney disease (HC) PSA TOTAL Routine 07/08/2024 10:56 AM METAL PAINTER Prostate cancer (HC) CBC W PLT NO DIFF Routine 07/08/2024 10: 56 AM METAL PAINTER Dizziness PATH TISSUE EXAM Routine 07/08/2024 10:3 8 AM METAL PAINTER Lesion of neck from Last 3 Months Results * ECHO TTE COMPLETE WO CONTRAST (07/14/2024 9:22 AM METAL PAINTER) AORTIC VALVE MEAN PG 4 mmHg EJECTION FRACTION 55 % PEAK TR VELOCITY 2.5 m/s LVEDD 4.5 cm Anatomical Region Laterality Modality Ultrasound 07/14/2024 8:59 AM METAL PAINTER Narrative 07/14/2024 9:57 AM METAL PAINTER ECHOCARDIOGRAM ERIN SANTO : 1935 88 years Study Date: 07/14/2024 8:59:55 AM Gender: M BP: 121/81 mmHg Height: 170.00 cm BSA: 1.83 m Weight: 72.00 kg Tech: RUBEN Referring MD: KUSHAL MANN Site: [facility] Reading Location: Mobile OP Patient Location: Outpatient. Procedure: 2D, Color Doppler and Spectral Doppler. Indication for study: Ascending aorta dilatation (HC); Mild mitral regurgitation Cardiac Rhythm: Regular.Study quality: Good. Final Impressions: 1. Normal left ventricular size, normal wall thickness, normal global systolic function, calculated EF of 55 %. 2. Right ventricular cavity size is normal, global systolic RV function is normal. 3. The aortic valve is trileaflet and sclerotic, no stenosis and trivial regurgitation. 4. The mitral valve is normal, mild mitral regurgitation. 5. The aortic sinus is normal for age/sex/bsa with a maximal diameter of 3.7 cm. 6. The ascending aorta is normal for age/sex/bsa with a maximal diameter of 3.8 cm. Comparison Compared to prior exam of 05/05/20, there has been no significant change. Chamber Sizes and Function Normal left ventricular size, normal wall thickness, normal global systolic function, calculated EF of 55 %. No resting regional wall motion abnormality visualized. Left atrial size is normal. Left atrial pressure is normal. Right ventricular cavity size is normal, global systolic RV function is normal. RV wall thickness is normal. The right atrium is normal. The pulmonary artery is of normal size and origin. The sinus of Valsalva is normal for age/sex/bsa. The ascending aorta is normal for age/sex/bsa. Valves, RV Pressures and Diastolic Function The aortic valve is trileaflet and sclerotic, no stenosis and trivial regurgitation. The mitral valve is normal in structure, mild mitral regurgitation. Normal diastolic function. The tricuspid valve is normal in structure. Tricuspid regurgitation is mild regurgitation. The tricuspid regurgitant velocity is 2.5 m/s, the estimated right ventricular systolic pressure is 25 mmHg plus right atrial pressure. The pulmonic valve is normal. No pulmonary regurgitation. Masses, Effusion, Shunts There is no pericardial effusion. The inferior vena cava is normal sized, respiratory size variation greater than 50%. No left to right shunting was detected by limited color flow Doppler interrogation of the interatrial septum. MEASUREMENTS AND CALCULATIONS 2-D Measurements and LV Function: LVID (d) 4.5 cm Planimetered EF 55 % LVID (s) 2.6 cm LV FS% (2D) 43 % IVS (d) 0.8 cm LVOT diameter 2.2 cm LVPW (d) 0.9 cm HR 65 bpm Ao Sinus 3.7 cm LA Vol index 31 ml/m2 Asc Ao 3.8 cm RV Max 4C (d) 3.3 cm LA 3.5 cm Diastology: Mitral Tissue Doppler E Peak 0.6 m/s e', Septum 0.06 m/s A Peak 0.8 m/s e', Lateral 0.10 m/s E/A 0.8 E/e' Average 7.87 DT 192 msec Aortic Valve: Vmax 1.3 m/s FRANCIA (V) 2.76 cm VTI 0.29 m FRANCIA (I) 2.77 cm LVOT V max 0.9 m/s Max PG 7 mmHg LVOT VTI 0.20 m Mean PG 4 mmHg SV 82 ml Dim Index 0.70 SV index 45 ml/m CO 5.3 l/min CI 2.9 l/min/m Mitral Valve: MVA 4.0 cm MV P 1/2 56 msec Tricuspid Valve and estimated PA pressures: TR Vmax 2.5 m/s TAPSE 2.2 cm TR maxG 25 mmHg Pulmonic Valve: PV AT 105 msec . This study was interpreted by an [facility] accredited facility. Final Procedure Note Cedric Bailey MD - 07/14/2024 ECHOCARDIOGRAM ERIN SANTO : 1935 88 years Study Date: 07/14/2024 8:59:55 AM Gender: M BP: 121/81 mmHg Height: 170.00 cm BSA: 1.83 m Weight: 72.00 kg Tech: MSR Referring MD: KUSHAL MANN Site: [facility] Reading Location: Mobile OP Patient Location: Outpatient. Procedure: 2D, Color Doppler and Spectral Doppler. Indication for study: Ascending aorta dilatation (HC); Mild mitralregurgitation Cardiac Rhythm: Regular.Study quality: Good. Final Impressions: 1. Normal left ventricular size, normal wall thickness, normal globalsystolic function, calculated EF of 55 %. 2. Right ventricular cavity size is normal, global systolic RV functionis normal. 3. The aortic valve is trileaflet and sclerotic, no stenosis and trivialregurgitation. 4. The mitral valve is normal, mild mitral regurgitation. 5. The aortic sinus is normal for age/sex/bsa with a maximal diameter of3.7 cm. 6. The ascending aorta is normal for age/sex/bsa with a maximal diameterof 3.8 cm. Comparison Compared to prior exam of 05/05/20, there has been no significantchange. Chamber Sizes and Function Normal left ventricular size, normal wall thickness, normal globalsystolic function, calculated EF of 55 %. No resting regional wall motionabnormality visualized. Left atrial size is normal. Left atrial pressureis normal. Right ventricular cavity size is normal, global systolic RVfunction is normal. RV wall thickness is normal. The right atrium isnormal. The pulmonary artery is of normal size and origin. The sinus ofValsalva is normal for age/sex/bsa. The ascending aorta is normal forage/sex/bsa. Valves, RV Pressures and Diastolic Function The aortic valve is trileaflet and sclerotic, no stenosis and trivialregurgitation. The mitral valve is normal in structure, mild mitralregurgitation. Normal diastolic function. The tricuspid valve is normal instructure. Tricuspid regurgitation is mild regurgitation. The tricuspidregurgitant velocity is 2.5 m/s, the estimated right ventricular systolicpressure is 25 mmHg plus right atrial pressure. The pulmonic valve isnormal. No pulmonary regurgitation. Masses, Effusion, Shunts There is no pericardial effusion. The inferior vena cava is normal sized,respiratory size variation greater than 50%. No left to right shunting wasdetected by limited color flow Doppler interrogation of the interatrialseptum. MEASUREMENTS AND CALCULATIONS 2-D Measurements and LV Function: LVID (d) 4.5 cm Planimetered EF 55 % LVID (s) 2.6 cm LV FS% (2D) 43 % IVS (d) 0.8 cm LVOT diameter 2.2 cm LVPW (d) 0.9 cm HR 65 bpm Ao Sinus 3.7 cm LA Vol index 31 ml/m2 Asc Ao 3.8 cm RV Max 4C (d) 3.3 cm LA 3.5 cm Diastology: Mitral Tissue Doppler E Peak 0.6 m/s e', Septum 0.06 m/s A Peak 0.8 m/s e', Lateral 0.10 m/s E/A 0.8 E/e' Average 7.87 DT 192 msec Aortic Valve: Vmax 1.3 m/s FRANCIA (V) 2.76 cm VTI 0.29 m FRANCIA (I) 2.77 cm LVOT V max 0.9 m/s Max PG 7 mmHg LVOT VTI 0.20 m Mean PG 4 mmHg SV 82 ml Dim Index 0.70 SV index 45 ml/m CO 5.3 l/min CI 2.9 l/min/m Mitral Valve: MVA 4.0 cm MV P 1/2 56 msec Tricuspid Valve and estimated PA pressures: TR Vmax 2.5 m/s TAPSE 2.2 cm TR maxG 25 mmHg Pulmonic Valve: PV AT 105 msec . This study was interpreted by an [facility] accredited facility. Final us Kushal Mann MD ECHO ORD Final Resu lt * VITAMIN D 25 (DEFICIENCY) (07/08/2024 10:56 AM METAL PAINTER) VITAMIN D,25-OH,TOTAL,IA 53 30 - 100 ng/mL [facility] Comment: Vitamin D Status 25-OH Vitamin D: Deficiency: <20 ng/mL Insufficiency: 20 - 29 ng/mL Optimal: > or = 30 ng/mL For 25-OH Vitamin D testing on patients on D2-supplementation and patients for whom quantitation of D2 and D3 fractions is required, the QuestAssureD(TM) 25-OH VIT D, (D2,D3), LC/MS/MS is recommended: order code 32400 (patients >2yrs). See Note 1 Note 1 For additional information, please refer to [email or web address].[email or web address] Jian/faq/GDV865 (This link is being provided for informational/ educational purposes only.) Blood BLOOD SPECIMEN / Unknown 07/08/2024 10:56 AM METAL PAINTER 07/08/2024 10:57 AM METAL PAINTER Kushal Mann MD SEND OUTS Final Resu lt Performing Organization Address City/[facility] Co de Phone Number [employer] [facility] [address] [place] [address], [facility] [address] [place] [address] * CBC W PLT NO DIFF (07/08/2024 10:56 AM METAL PAINTER) WHITE BLOOD CELL COUNT 6.0 3.8 - 10.8 Thousand/u L [facility] RED BLOOD CELL COUNT 4.73 4.20 - 5.80 Million/uL [facility] HEMOGLOBIN 13.6 13.2 - 17.1 g/dL [facility] HEMATOCRIT 40.8 38.5 - 50.0 % [facility] MCV 86.3 80.0 - 100.0 fL [facility] MCH 28.8 27.0 - 33.0 pg [facility] MCHC 33.3 32.0 - 36.0 g/dL [facility] Comment: For adults, a slight decrease in the calculated MCHC value (in the range of 30 to 32 g/dL) is most likely not clinically significant; however, it should be interpreted with caution in correlation with other red cell parameters and the patient's clinical condition. RDW 13.3 11.0 - 15.0 % [facility] PLATELET COUNT 274 140 - 400 Thousand/u L [facility] MPV 10.9 7.5 - 12.5 fL [facility] Blood BLOOD SPECIMEN / Unknown 07/08/2024 10:56 AM METAL PAINTER 07/08/2024 10:57 AM METAL PAINTER Kushal Mann MD HEMATOLOGY Final Resu lt [employer] [facility] [address] [place] [address], [place] [phone] [facility] [address] [place] [address] * PSA TOTAL (DIAG OR SCREEN) (07/08/2024 10:56 AM METAL PAINTER) PSA, TOTAL 0.05 < OR = 4.00 ng/mL [facility] Comment: The total PSA value from this assay system is standardized against the WHO standard. The test result will be approximately 20% lower when compared to the equimolar-standardized total PSA ([facility] [place]). Comparison of serial PSA results should be interpreted with this fact in mind. This test was performed using the Siemens chemiluminescent method. Values obtained from different assay methods cannot be used interchangeably. PSA levels, regardless of value, should not be interpreted as absolute evidence of the presence or absence of disease. Blood BLOOD SPECIMEN / Unknown 07/08/2024 10:56 AM METAL PAINTER 07/08/2024 10:57 AM METAL PAINTER us Kushal Mann MD CHEMISTRY Final Resu lt Performing Organization Address [facility]/ZIP Co de Phone Number [employer] [facility] [address] [place] [address], [facility] [address] [place] [address] * (ABNORMAL) BASIC METABOLIC PANEL (07/08/2024 10:56 AM METAL PAINTER) GLUCOSE 90 65 - 99 mg/dL [facility] Comment: Fasting reference interval UREA NITROGEN (BUN) 26(H) 7 - 25 mg/dL [facility] CREATININE 1.78(H) 0.70 - 1.22 mg/dL [facility] EGFR 37(L) > OR = 60 mL/min/1.7 3m2 [facility] BUN/CREATININE RATIO 15 6 - 22 (calc) [facility] SODIUM 139 135 - 146 mmol/L [facility] POTASSIUM 4.5 3.5 - 5.3 mmol/L [facility] CHLORIDE 100 98 - 110 mmol/L [facility] CARBON DIOXIDE 29 20 - 32 mmol/L [facility] ELECTROLYTE BALANCE 10 7 - 17 mmol/L (calc) [facility] CALCIUM 10.0 8.6 - 10.3 mg/dL [facility] Blood BLOOD SPECIMEN / Unknown 07/08/2024 10:56 AM METAL PAINTER 07/08/2024 10:57 AM METAL PAINTER Kushal Mann MD CHEMISTRY Final Resu lt [employer] [facility] [address] [place] [address], [facility] [address] [place] [address] * PATH TISSUE EXAM (07/08/2024 10:38 AM METAL PAINTER) Case Report Pathology Report Case: [id number] Authorizing Provider: Kushal Mann MD Collected: 07/08/2024 1038 Ordering Location: [facility] Received: 07/08/2024 1113 Clinic Pathologist: Devonte German Jr., MD Specimen: Right neck 07/12/2024 1:32 PM METAL PAINTER [facility] Final Diagnosis SKIN, RIGHT NECK, BIOPSY: 1. Pigmented seborrheic keratosis 2. Negative for malignancy 07/12/2024 1:32 PM METAL PAINTER [facility] Clinical Information Right neck lesion 07/12/2024 1:32 PM METAL PAINTER [facility] Gross Description A) Received in formalin, labeled with the patient's name and date of , is a 0.3 x 0.3 x 0.2 cm skin punch biopsy. The skin surface is totally involved by a flat brown-black lesion. The specimen is inked green, left intact and entirely submitted in one cassette. SJM 07/08/2024 07/12/2024 1:32 PM METAL PAINTER [facility] ENTRDE LABORATORY Microscopic Description The final diagnosis is based on microscopic examination of appropriate sections of all specimens. The epidermis is acanthotic and hyperkeratotic. Epidermal pigmentation is present. The presence of green ink is confirmed on tissue sections. 07/12/2024 1:32 PM METAL PAINTER [facility] EN[facility]AL LAB[facility]ATORY Additional Information Interpreted at [facility], Central Laboratory - [address] [facility] [address] [address] 07/12/2024 1:32 PM METAL PAINTER [facility]- ENTRDE LABORATORY Other (Right neck) Non-Blood / Unknown 07/08/2024 10:38 AM METAL PAINTER 07/08/2024 11:13 AM METAL PAINTER us Kushal Mann MD PATHOLOGY/CYTOLOGY Final R esult [facility] [address] [place] [address], from Last 3 Months Insurance [employer] [place] BLUE MR PB ONLY [employer] [place] [place] BLUE HB ONLY MEDICARE PART B HB ONLY Advance Directives Documents on File Type Date Recorded Patient It Auditor Expl anation Healthcare Directive 01/05/2024 3:22 PM HE ALTHCARE DIRECTIVE, SCANNED 01/05/24 * Full Code (Latest Code Status on File) Date Activated Date Inactivated Comments 09/17/2007 10:48 AM 09/17/2007 9:29 PM Care Teams Quality Engineer Relationship Specialty Start Date End Date Kushal Mann MD [address] [facility] [address] PCP - General Family Practice 12/31/17
[2024-09-11 16:41] VITALS: BP 132/81; PULSE 83; RESP 18; TEMP 37.1; O2SAT 97; BMI 23.6
--- OUTSIDE RECORDS SUMMARY | 2024-09-11 17:32 | XMS_ITS | Clinical Summary ---
Author Organization [employer] [facility] Address [address] [place] [address] Care Team Providers Care Manager Icu Name Role Phone Kushal Mann MD Primary Care Provider [phone] Allergies Active Allergy Reactions Criticality Noted Date [...] Department Care Team Description 07/14/2024 9:00 AM RESTAURANT CREW PERSON Ancillary Procedure [facility] [address] [place] [address] 07/14/2024 Travel 07/08/2024 9:50 AM RESTAURANT CREW PERSON Office Visit [facility] [address] [place] [address] Kushal Mann MD Medicare ANNUAL (subsequent) Visit [...] ose) (Flu Clinic Only) 03/26/2016,03/24/2015 COVID-19 vaccine ([employer] 30mcg/0.3mL) ANGELA ANDRADE 08/19/2020,07/29/2020 Influenza A (H1N1), [...] on file Legal Sex Male 6:27 AM RESTAURANT CREW PERSON Gender Identity Not on file Sexual Orientation Not on file Obstetrics History Last Filed Vital Signs Vital Sign Reading Time Taken Comments Blood Pressure 121/81 07/08/2024 9:57 AM RESTAURANT CREW PERSON Pulse 82 07/08/2024 9:57 AM RESTAURANT CREW PERSON Temperature 36.3 C (97.4 F) 08/03/2021 8:32 AM RESTAURANT CREW PERSON Respiratory Rate 16 05/30/2020 10:28 AM RESTAURANT CREW PERSON Oxygen Saturation 99% 07/08/2024 9:57 AM RESTAURANT CREW PERSON Inhaled Oxygen Concentration - - Weight 72.3 kg (159 lb 6.4 oz) 07/08/2024 9:57 A M [employer]AURANT CREW PERSON Height 172 cm (5' 7.72) 07/08/2024 9:57 AM RESTAURANT CREW PERSON Body Mass Index 24.44 07/08/2024 9:57 AM RESTAURANT CREW PERSON Plan of Treatment Health Maintenance Due Date [...] history exists Medical Devices Implanted Type Area Speech Pathology Assistant Device Identifier Shelf Expiration Date Model / Serial / Lot Implant On The Fly - [id number] Implanted:Qty: 76 on 09/17/2007 at [facility] [id number] / / [id number] Description:Prostated seeds: NASI Source Pd-103 1.550[facility] , [address] [place] [address], [address], Implant On The Fly - [id number] Implanted:Qty: 1 on 09/17/2007 at [facility] / / AUTOCLAVE 3/LOAD 3 Description:Gold prostate se ed used as marker. no charge item. Procedures Procedure Name Priority Date/Time Associated Diagnosis Comments ECHO TTE COMPLETE WO CONTRAST Routine 07/14/2024 9:22 AM RESTAURANT CREW PERSON Ascending aorta dilatation Mild mitral regurgitation VITAMIN D 25 (DEFICIENCY) Routine 07/08/2024 10:56 AM RESTAURANT CREW PERSON Vitamin D deficiency BASIC METABOLIC PANEL Routine 07/08/2024 10:56 AM RESTAURANT CREW PERSON HTN (hypertension) Stage 3b chronic kidney disease (HC) PSA TOTAL Routine 07/08/2024 10:56 AM RESTAURANT CREW PERSON Prostate cancer (HC) CBC W PLT NO DIFF Routine 07/08/2024 10: 56 AM RESTAURANT CREW PERSON Dizziness PATH TISSUE EXAM Routine 07/08/2024 10:3 8 AM RESTAURANT CREW PERSON Lesion of neck from Last 3 Months Results * ECHO TTE COMPLETE WO CONTRAST (07/14/2024 9:22 AM RESTAURANT CREW PERSON) AORTIC VALVE MEAN PG 4 mmHg EJECTION FRACTION 55 % PEAK TR VELOCITY 2.5 m/s LVEDD 4.5 cm Anatomical Region Laterality Modality Ultrasound 07/14/2024 8:59 AM RESTAURANT CREW PERSON Narrative 07/14/2024 9:57 AM RESTAURANT CREW PERSON ECHOCARDIOGRAM ERIN SANTO : 1935 88 years Study Date: 07/14/2024 8:59:55 AM Gender: M BP: 121/81 mmHg Height: 170.00 cm BSA: 1.83 m Weight: 72.00 kg Tech: RUBEN Referring MD: KUSHAL MANN Site: [facility] Reading Location: Mobile OP Patient Location: Outpatient. [...] . This study was interpreted by an [facility] accredited facility. Final Procedure Note Cedric Bailey MD - 07/14/2024 ECHOCARDIOGRAM ERIN SANTO : 1935 88 years Study Date: 07/14/2024 8:59:55 AM Gender: M BP: 121/81 mmHg Height: 170.00 cm BSA: 1.83 m Weight: 72.00 kg Tech: MSR Referring MD: KUSHAL MANN Site: [facility] Reading Location: Mobile OP Patient Location: Outpatient. [...] . This study was interpreted by an [facility] accredited facility. Final us Kushal Mann MD ECHO ORD Final Resu lt * VITAMIN D 25 (DEFICIENCY) (07/08/2024 10:56 AM RESTAURANT CREW PERSON) VITAMIN D,25-OH,TOTAL,IA 53 30 - 100 ng/mL [employer] Comment: Vitamin D Status 25-OH Vitamin D: Deficiency: <20 ng/mL Insufficiency: 20 - 29 ng/mL Optimal: > or = 30 ng/mL For 25-OH Vitamin D testing on patients on D2-supplementation and patients for whom quantitation of D2 and D3 fractions is required, the QuestAssureD(TM) 25-OH VIT D, (D2,D3), LC/MS/MS is recommended: order code [id number] (patients >2yrs). See Note 1 Note 1 For additional information, please refer to http://education.Celaton/faq/RZN369 (This link is being provided for informational/ educational purposes only.) Blood BLOOD SPECIMEN / Unknown 07/08/2024 10:56 AM RESTAURANT CREW PERSON 07/08/2024 10:57 AM RESTAURANT CREW PERSON Kushal Mann MD SEND OUTS Final Resu lt Performing Organization Address City/[facility] Co de Phone Number [employer] [facility] [address] [place] [address], [facility] [address] [place] [address] * CBC W PLT NO DIFF (07/08/2024 10:56 AM RESTAURANT CREW PERSON) WHITE BLOOD CELL COUNT 6.0 3.8 - [...] BLOOD SPECIMEN / Unknown 07/08/2024 10:56 AM RESTAURANT CREW PERSON 07/08/2024 10:57 AM RESTAURANT CREW PERSON Kushal Mann MD HEMATOLOGY Final Resu lt [employer] [facility] [address] [place] [address], [place] [phone] [facility] [address] [place] [address] * PSA TOTAL (DIAG OR SCREEN) (07/08/2024 10:56 AM RESTAURANT CREW PERSON) PSA, TOTAL 0.05 < OR = 4.00 ng/mL [employer] Comment: The total PSA value from this assay system is standardized against the WHO standard. The test result will be approximately 20% lower when compared to the equimolar-standardized total PSA (Raina Irvine). Comparison of serial PSA results should be interpreted with this fact in mind. This test was performed using the Siemens chemiluminescent method. Values obtained from different assay methods cannot be used interchangeably. PSA levels, regardless of value, should not be interpreted as absolute evidence of the presence or absence of disease. Blood BLOOD SPECIMEN / Unknown 07/08/2024 10:56 AM RESTAURANT CREW PERSON 07/08/2024 10:57 AM RESTAURANT CREW PERSON us Kushal Mann MD CHEMISTRY Final Resu lt Performing Organization Address [facility]/ZIP Co de Phone Number [employer] [facility] [address] [place] [address], [facility] [address] [place] [address] * (ABNORMAL) BASIC METABOLIC PANEL (07/08/2024 10:56 AM RESTAURANT CREW PERSON) GLUCOSE 90 65 - 99 mg/dL [employer] [employer] [facility] Comment: Fasting reference interval UREA [...] BLOOD SPECIMEN / Unknown 07/08/2024 10:56 AM RESTAURANT CREW PERSON 07/08/2024 10:57 AM RESTAURANT CREW PERSON Kushal Mann MD CHEMISTRY Final Resu lt [employer] [facility] [address] [place] [address], [facility] [address] [place] [address] * PATH TISSUE EXAM (07/08/2024 10:38 AM RESTAURANT CREW PERSON) Case Report Pathology Report Case: [id number] Authorizing Provider: Kushal Mann MD Collected: 07/08/2024 1038 Ordering Location: [facility] Received: 07/08/2024 1113 Clinic Pathologist: Devonte German Jr., MD Specimen: Right neck 07/12/2024 1:32 PM RESTAURANT CREW PERSON [facility] Final Diagnosis SKIN, RIGHT NECK, BIOPSY: 1. Pigmented seborrheic keratosis 2. Negative for malignancy 07/12/2024 1:32 PM RESTAURANT CREW PERSON [facility] Clinical Information Right neck lesion 07/12/2024 1:32 PM RESTAURANT CREW PERSON [facility] Gross Description A) Received in formalin, labeled with the patient's name and date of , is a 0.3 x 0.3 x 0.2 cm skin punch biopsy. The skin surface is totally involved by a flat brown-black lesion. The specimen is inked green, left intact and entirely submitted in one cassette. SJM 07/08/2024 07/12/2024 1:32 PM RESTAURANT CREW PERSON [facility] ENTRMI LABORATORY Microscopic Description The final diagnosis is based on microscopic examination of appropriate sections of all specimens. The epidermis is acanthotic and hyperkeratotic. Epidermal pigmentation is present. The presence of green ink is confirmed on tissue sections. 07/12/2024 1:32 PM RESTAURANT CREW PERSON [facility] ENTRAL LABORATORY Additional Information Interpreted at [facility], Central Laboratory - [address] [facility] [address] [address] 07/12/2024 1:32 PM RESTAURANT CREW PERSON [facility]- ENTRMI LABORATORY Other (Right neck) Non-Blood / Unknown 07/08/2024 10:38 AM RESTAURANT CREW PERSON 07/08/2024 11:13 AM RESTAURANT CREW PERSON us Kushal Mann MD PATHOLOGY/CYTOLOGY Final R esult [facility]-CENTRAL LAB[facility]ATORY [address] [place] [address], from Last 3 Months Insurance [employer] [place] BLUE MR PB ONLY [employer] [place] BLUE HB ONLY MEDICARE PART B HB ONLY Advance Directives Documents on File Type Date Recorded Patient Emergency Response Officer Expl anation Healthcare Directive 01/05/2024 3:22 PM HE ALTHCARE DIRECTIVE, SCANNED 01/05/24 * Full Code (Latest Code Status on File) Date Activated Date Inactivated Comments 09/17/2007 10:48 AM 09/17/2007 9:29 PM Care Teams Manager Icu Relationship Specialty Start Date End Date Kushal Mann MD [address] [facility] [address] PCP - General Family Practice 12/31/17
--- NOTE | 2024-09-11 17:38 | ED.CHESTPAIN ---
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 He has been taking Tylenol 1 g q.8h, with improvement of his symptoms. Home COVID test was done today which was positive. He called the nurse, who recommended that he come in and get seen, he was describing with deep inspirations some chest discomfort more on the right side of his chest. He has no purulent sputum notable. Feels a little bit more short of breath when he is walking around but not really bad his aches are also increase but he says he has chronic aches. No history of any cardiovascular, or lung problems, he does have a history of chronic kidney disease, which is says is been stable for a number of years. Here today with his partner Related Data Home Medications ?Medication ?Instructions ?Recorded ?Confirmed amlodipine 5 mg tablet 5 mg PO DAILY 04/01/22 09/11/24 calcium 500 mg (as 1 tab PO DAILY 04/01/22 09/11/24 carbonate)-vitamin D3 10 mcg (400 unit) tablet (Calcium 500 With D) losartan 50 mg tablet 50 mg PO DAILY 04/01/22 09/11/24 Allergies Allergy/AdvReac Type Severity Reaction Status Date / Time penicillin V Allergy Rash Verified 09/11/24 16:43 Review of Systems Status of ROS Reports: 10 or more systems reviewed and unremarkable except as noted in History and below [facility] Medical History Chronic kidney disease ?N18.9 - Chronic kidney disease, unspecified (ICD-10) Acquired renal artery stenosis ?I70.1 - Atherosclerosis of renal artery (ICD-10) Arthritis of right hip ?M16.11 - Unilateral primary osteoarthritis, right hip (ICD-10) NSVT (nonsustained ventricular tachycardia) ?I47.29 - Other ventricular tachycardia (ICD-10) Hypertension ?I10 - Essential (primary) hypertension (ICD-10) Lyme disease ?A69.20 - Lyme disease, unspecified (ICD-10) CA of prostate ?C61 - Malignant neoplasm of prostate (ICD-10) Surgical History 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) ?Z96.641 - Presence of right artificial hip joint (ICD-10) History of hernia repair ?Z98.890 - Other specified postprocedural states (ICD-10) ?Z87.19 - Personal history of other diseases of the digestive system (ICD-10) History of prostate biopsy ?Z98.890 - Other specified postprocedural states (ICD-10) Social History Highest level of school completed/degree received: Professional degree (, EMELY, DVM, DDS) Smoking Status: Never smoker Do you use any of these nicotine containing products: None How often do you have a drink containing alcohol: 4 or more times a week Alcohol type: wine How many standard drinks containing alcohol do you have on a typical day: 1 or 2 How often do you have six or more drinks on one occasion: Never AUDIT-C Alcohol total score: 4 Non-prescribed substance use: denies use Caffeine: Yes (C0ffee 2 cups/day) service: No Exam Narrative Exam Narrative: Patient is seen in room 1 he appears to be in no distress speaking to me normally, no audible wheezing. Nontoxic. Pupils equal round react to light his TMs normal oropharynx normal good hydration status his chest is good air entry bilaterally no wheezing crackles noted his heart sounds no clicks murmurs or gallops and nice and regular, abdomen is soft there is no guarding no organomegaly bowel sounds are normal, moves all extremities independently and well. Skin result petechiae rashes, some mild edema noted of his lower extremities, I described as 1+, no unilateral swelling or pain. Const Vital Signs, click to edit/add: Vital Signs - 24 hr 09/11/24 16:41 Temperature 98.7 F Pulse Rate [Pulse Oximeter] 83 Respiratory Rate 18 Blood Pressure [Right Upper Arm] 132/81 Pulse Oximetry 97 Oxygen Delivery Method Room Air Documenting provider has reviewed patient's vital signs: yes Course Course ED Course: After discussion with patient in their , I went over the risks of leaving here without full testing, including and disability and they understand this and would just like to go home, they did agree to follow-up if worsening signs and symptoms, explained we are always open, they come back, follow-up with primary care is also suggested. Vital Signs Vital signs: Initial Vital Signs Temperature 98.7 F 09/11/24 16:41 Temperature Source Temporal Artery Scan 09/11/24 16:41 Pulse Rate 83 09/11/24 16:41 Respiratory Rate 18 09/11/24 16:41 Blood Pressure 132/81 09/11/24 16:41 Blood Pressure Mean 98 09/11/24 16:41 Blood Pressure Position Sitting 09/11/24 16:41 Pulse Oximetry 97 09/11/24 16:41 Oxygen Delivery Method Room Air 09/11/24 16:41 Vital Signs Temperature 98.7 F 09/11/24 16:41 Pulse Rate 83 09/11/24 16:41 Respiratory Rate 18 09/11/24 16:41 Blood Pressure 132/81 09/11/24 16:41 Pulse Oximetry 97 09/11/24 16:41 Oxygen Delivery Method Room Air 09/11/24 16:41 Temperature 98.7 F 09/11/24 16:41 Pulse Rate 83 09/11/24 16:41 Respiratory Rate 18 09/11/24 16:41 Blood Pressure 132/81 09/11/24 16:41 Pulse Oximetry 97 09/11/24 16:41 Oxygen Delivery Method Room Air 09/11/24 16:41 MDM - Chest Pain MDM Narrative Medical decision making narrative: During the evaluation of this patient I considered multiple differential diagnosis is. The life-threatening differential diagnosis include coronary disease/NH, pulmonary embolism, pneumothorax, pneumonia, and aortic dissection. Other differential diagnosis included but were not limited to pericarditis, myocarditis, chest wall pain, GERD, esophageal rupture, rib fracture contusion, pleurisy, as well as other etiologies. Life-threatening differential diagnosis includes occluded COPD exacerbation, pulmonary edema, acute coronary syndromes, pulmonary embolism, pneumonia, and pneumothorax. Other differential diagnosis considerations include asthma, bronchitis as well as other etiologies Certainly this is all part parcel with the COVID, but he has recently returned from a long flight. He has no history of previous DVT or pulmonary emboli, but I think a D-dimer along with an EKG and some blood test would be reasonable, he may qualify but may not with his chronic renal disease for [facility] Medical Records Data Attestation: I reviewed the patient's medical records. Lab Data Labs: Lab Results 09/11/24 Range/Units 17:36 D-Dimer Quant (PE/DVT) < 0.27 (0.00-0.50) ug/ml Sodium 140 (135-149) mmol/L Potassium 4.5 (3.6-5.1) mmol/L Chloride 104 (96-114) mmol/L Carbon Dioxide 26 (20-32) mmol/L Anion Gap 10 (7-15) mEq/L BUN 28 (7-30) mg/dL Creatinine 2.3 H (0.5-1.5) mg/dL Estimated Creat Clear 21.89 Estimated GFR 27 ml/min Glucose 91 (60-115) mg/dL Calcium 8.9 (8.4-10.6) mg/dL Troponin I < 0.01 (0.01-0.04) ng/mL ECG Data Attestation: I personally reviewed and interpreted this ECG as follows: ECG interpretation date: 09/11/24 Prior ECG tracings: not available for review Interpretation: EKG shows normal sinus rhythm with a ventricular rate of 79, regular no acute ST wave changes are noted, there is some muscle artifact, and the computer is saying atrial fibrillation but I disagree. Assessment: Normal EKG Discharge Plan Discharge Clinical Impression: COVID-19, Breath, shortness, Chronic renal insufficiency Patient Disposition: Left Against Medical Advice Condition: Stable Instructions: Shortness of Breath (ED), COVID-19 (Coronavirus Disease 2019) (ED) Additional Instructions: home,rest and to return if increasing shortness of breath or chest pain, you realize that by leaving you absolve the hospital and any results that are abnormal or complications of the illness. We do recommend that you follow up with primary care in the next couple of days. Prescriptions: No Action amlodipine 5 mg tablet 5 mg PO DAILY losartan 50 mg tablet 50 mg PO DAILY calcium carbonate-vitamin D3 [Calcium 500 With D] 500 mg-10 mcg (400 unit) tablet 1 tab PO DAILY Follow Up/Referrals: Kody Mann MD [Primary Care Provider] - Stand Alone Forms: [employer] Info Instructions
[2024-09-11 18:08] LABS: Chloride* 104 mmol/L (96-114); Sodium* 140 mmol/L (135-149)
[2024-09-11 18:09] LABS: Potassium* 4.5 mmol/L (3.6-5.1)
[2024-09-11 18:11] LABS: Anion Gap 10 mEq/L (7-15); Blood Urea Nitrogen* 28 mg/dL (7-30); Carbon Dioxide* 26 mmol/L (20-32); Creatinine* 2.3 mg/dL (0.5-1.5); Est. Creatinine Clearance* 21.89; Estimated Glomerular Filt Rate 27 ml/min
[2024-09-11 18:12] LABS: Calcium* 8.9 mg/dL (8.4-10.6); Glucose* 91 mg/dL (60-115)
[2024-09-11 18:17] LABS: D Dimer Quantitative* < 0.27 ug/ml (0.00-0.50)
[2024-09-11 18:24] LABS: Troponin I* < 0.01 ng/mL (0.01-0.04)
== END 2024-09-11 18:18 | disposition left against medical advice (07) ==
PROVIDERS: Emergency Provider Family Medicine; PCP Surgery
DX: U07.1 COVID-19 (principal); N18.9 Chronic kidney disease, unspecified
CPT/HCPCS: 36415; 80048; 84484; 85379; 93005; 94761; 99284